=== PATIENT | male | born 1990 | race American Indian/Alaskan Native ===

== ENCOUNTER 2020-10-15 05:55 | Emergency (ER) | payer SELFPAY ==
[2020-10-15 06:10] VITALS: BP 128/80
--- NOTE | 2020-10-15 06:34 | Emergency Department Report ---
ED ENT HPI - General Chief complaint: Sore Throat Stated complaint: SORE THROAT Time Seen by Provider: 10/15/20 06:29 Source: patient, EMS Mode of arrival: Ambulatory Limitations: No Limitations - History of Present Illness Initial comments: Patient is a 30-year-old male presents emergency room complaints of a sore throat that began 2 days ago. Patient has associated discomfort with swallowing. Patient is able to tolerate p.o. intake and secretions. Patient denies any fever, nausea, vomiting, diarrhea, cough, shortness of breath. Patient denies any sick contacts or recent travel. No past medical history. No allergies to medications. He has not been taking anything for his symptoms. - Related Data Previous Rx's Medication Instructions Recorded Last Taken Type Acetaminophen/Codeine [Tylenol #3] 1 tab PO Q6H PRN #12 tab 11/16/14 Unknown Rx Amoxicillin [Trimox CAP] 500 mg PO Q8H #30 capsule 11/16/14 Unknown Rx Naproxen [EC-Naprosyn] 500 mg PO BID PRN #14 tablet. 10/15/20 Unknown Rx Nystas/Diphen/Xyl Visc/Mylanta 30 ml MM Q4H PRN #300 ml 10/15/20 Unknown Rx [Magic Mouthwash] Penicillin Vk [Veetids TAB] 500 mg PO BID 10 Days #40 tablet 10/15/20 Unknown Rx Allergies Allergy/AdvReac Type Severity Reaction Status Date / Time No Known Allergies Allergy Verified 11/16/14 10:06 ED Dental HPI - General Chief complaint: Sore Throat Stated complaint: SORE THROAT Time Seen by Provider: 10/15/20 06:29 Source: patient, EMS Mode of arrival: Ambulatory Limitations: No Limitations - Related Data Previous Rx's Medication Instructions Recorded Last Taken Type Acetaminophen/Codeine [Tylenol #3] 1 tab PO Q6H PRN #12 tab 11/16/14 Unknown Rx Amoxicillin [Trimox CAP] 500 mg PO Q8H #30 capsule 11/16/14 Unknown Rx Naproxen [EC-Naprosyn] 500 mg PO BID PRN #14 tablet. 10/15/20 Unknown Rx Nystas/Diphen/Xyl Visc/Mylanta 30 ml MM Q4H PRN #300 ml 10/15/20 Unknown Rx [Magic Mouthwash] Penicillin Vk [Veetids TAB] 500 mg PO BID 10 Days #40 tablet 10/15/20 Unknown Rx Allergies Allergy/AdvReac Type Severity Reaction Status Date / Time No Known Allergies Allergy Verified 11/16/14 10:06 ED Review of Systems ROS: Stated complaint: SORE THROAT Other details as noted in HPI Comment: All other systems reviewed and negative ED Past Medical Hx - Past Medical History Previous Medical History?: No - Surgical History Past Surgical History?: Yes Hx Appendectomy: Yes (2008) - Social History Smoking Status: Current Every Day Smoker - Medications Home Medications: Home Medications Medication Instructions Recorded Confirmed Last Taken Type Acetaminophen/Codeine [Tylenol #3] 1 tab PO Q6H PRN #12 tab 11/16/14 Unknown Rx Amoxicillin [Trimox CAP] 500 mg PO Q8H #30 capsule 11/16/14 Unknown Rx Naproxen [EC-Naprosyn] 500 mg PO BID PRN #14 tablet.dr 10/15/20 Unknown Rx Nystas/Diphen/Xyl Visc/Mylanta 30 ml MM Q4H PRN #300 ml 10/15/20 Unknown Rx [Magic Mouthwash] Penicillin Vk [Veetids TAB] 500 mg PO BID 10 Days #40 tablet 10/15/20 Unknown Rx ED Physical Exam - General Limitations: No Limitations General appearance: alert, in no apparent distress - Head Head exam: Present: atraumatic, normocephalic - Eye Eye exam: Present: normal appearance - ENT ENT exam: Present: mucous membranes moist, TM's normal bilaterally, normal external ear exam, other (posterior oropharynx erythema with small exudates, no tonsillar hypertrophy, uvula is midline, no uvular edema or deviation, no trismus, no tongue elevation, no muffled voice, airway is intact) - Respiratory Respiratory exam: Present: normal lung sounds bilaterally. Absent: respiratory distress, wheezes, rales, rhonchi, stridor, chest wall tenderness, accessory muscle use, decreased breath sounds, prolonged expiratory - Cardiovascular Cardiovascular Exam: Present: regular rate, normal rhythm, normal heart sounds. Absent: systolic murmur, diastolic murmur, rubs, gallop - Neurological Exam Neurological exam: Present: alert, oriented X3 - Psychiatric Psychiatric exam: Present: normal affect, normal mood - Skin Skin exam: Present: warm, dry, intact ED Course Vital Signs 04/05/21 06:06 Temperature 98.4 F Pulse Rate 72 Respiratory 20 Rate Blood Pressure 128/80 O2 Sat by Pulse 96 Oximetry ED Medical Decision Making - Medical Decision Making Patient is a 30-year-old male presents emergency room complaints of a sore throat that began 2 days ago. Patient has associated discomfort with swallowing. Patient is able to tolerate p.o. intake and secretions. Patient denies any fever, nausea, vomiting, diarrhea, cough, shortness of breath. Patient denies any sick contacts or recent travel. No past medical history. No allergies to medications. He has not been taking anything for his symptoms. Vitals are normal. On exam:posterior oropharynx erythema with small exudates, no tonsillar hypertrophy, uvula is midline, no uvular edema or deviation, no trismus, no tongue elevation, no muffled voice, airway is intact. Examination appears consistent with pharyngitis, no signs of peritonsillar abscess at this time. Patient given prescription for penicillin VK, Magic mouthwash, naproxen. Advised patient Please take medication as prescribed. Increase your fluid in take. Please take antibiotics to completion. Throw away your toothbrush. Do not drink after others or allow anyone to drink after you. Follow-up with your primary care doctor for reexamination. Return to emergency room for new or worsening symptoms. Critical care attestation.: If time is entered above; I have spent that time in minutes in the direct care of this critically ill patient, excluding procedure time. ED Disposition Clinical Impression: Pharyngitis Qualifiers: Pharyngitis/tonsillitis etiology: unspecified etiology Qualified Code(s): J02.9 - Acute pharyngitis, unspecified Disposition: DC- TO HOME OR SELFCARE Is pt being admited?: No Does the pt Need Aspirin: No Condition: Stable Instructions: Pharyngitis Additional Instructions: Please take medication as prescribed. Increase your fluid intake. Please take antibiotics to completion. Throw away your toothbrush. Do not drink after others or allow anyone to drink after you. Follow-up with your primary care doctor for reexamination. Return to emergency room for new or worsening symptoms. Prescriptions: Naproxen [EC-Naprosyn] 500 mg PO BID PRN #14 tablet.dr HERNANDEZ Reason: pain Nystas/Diphen/Xyl Visc/Mylanta [Magic Mouthwash] 30 ml MM Q4H PRN #300 ml PRN Reason: sore throat Penicillin Vk [Veetids TAB] 500 mg PO BID 10 Days #40 tablet Referrals: FREDDY CORRIGAN MD [Staff Physician] - 3-5 Days [facility] [Provider Group] - 3-5 Days Time of Disposition: 06:35 Print Language: GHANAIAN
[2020-10-15] MEDS ORDERED: dexAMETHasone 20 MG/5 ML VIAL IM ONE (06:47)
== END 2020-10-15 06:40 | disposition home or self-care (01) ==
LOC: ED 05:55
DX: J02.9 Acute pharyngitis, unspecified (principal); F17.200 Nicotine dependence, unspecified, uncomplicated; Z79.899 Other long term (current) drug therapy; Z90.49 Acquired absence of other specified parts of digestive tract
CPT/HCPCS: 96372; 99283; J1100